=== PATIENT | male | born 1990 | race Caucasian/White ===

== ENCOUNTER 2016-09-26 18:45 | Emergency (ER) | payer BC ==
[2016-09-26] MEDS ORDERED: Ketorolac 60 MG/2 ML SDV IM ONE (19:01)
--- NOTE | 2016-09-26 19:08 | EDM.PDOC ---
ED HPI GENERAL MEDICAL PROBLEM - General Chief Complaint: Chest Pain Stated Complaint: CHEST PAIN Time Seen by Provider: 09/26/16 18:50 Source of Information: Reports: Patient History Limitations: Reports: No Limitations - History of Present Illness INITIAL COMMENTS - FREE TEXT/NARRATIVE: 26 yo male played in a softball tournament over the weekend and at one point while playing catcher had an opposing player run into him. He had no pain at that time, but since then has developed L upper anterior chest wall pain worse with deep breathing or coughing. No SOB. 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 - Related Data Allergies Allergy/AdvReac Type Severity Reaction Status Date / Time No Known Allergies Allergy Verified 11/15/12 23:08 Home Meds: Home Meds Ondansetron [Zofran ODT] 4 mg PO Q6H PRN #4 tab.dis 11/16/12 [Rx] Mirtazapine [Remeron] 30 mg PO BEDTIME 11/17/12 [History] Social & Family History - Tobacco Use Second Hand Smoke Exposure: Yes - Alcohol Use Days Per Week of Alcohol Use: 2 Number of Drinks Per Day: 5 Total Drinks Per Week: 10 - Recreational Drug Use Recreational Drug Use: No ED ROS GENERAL - Review of Systems Review Of Systems: See Below Constitutional: Reports: No Symptoms HEENT: Reports: No Symptoms Respiratory: Reports: Pleuritic Chest Pain. Denies: Shortness of Breath, Wheezing, Cough, Sputum, Hemoptysis Cardiovascular: Reports: Chest Pain (L upper chest) Endocrine: Reports: No Symptoms GI/Abdominal: Reports: No Symptoms : Reports: No Symptoms Musculoskeletal: Reports: No Symptoms Skin: Reports: No Symptoms Neurological: Reports: No Symptoms ED EXAM, GENERAL - Physical Exam Exam: See Below Exam Limited By: No Limitations General Appearance: Alert, WD/WN, No Apparent Distress Eye Exam: Bilateral Eye: Normal Inspection Ears: Normal External Exam, Normal Canal, Hearing Grossly Normal Ear Exam: Bilateral Ear: Auricle Normal, Canal Normal Nose: Normal Inspection, Normal Mucosa, No Blood Throat/Mouth: Normal Inspection, Normal Oropharynx, Normal Voice, No Airway Compromise Head: Atraumatic, Normocephalic Neck: Normal Inspection, Supple Respiratory/Chest: No Respiratory Distress, Lungs Clear, Normal Breath Sounds, No Accessory Muscle Use, Other (Localized rib pain without crepitus to the upper L chest. ). No: Chest Non-Tender Cardiovascular: Regular Rate, Rhythm, No Edema Back Exam: Normal Inspection. No: CVA Tenderness (R), CVA Tenderness (L) Extremities: Normal Inspection, Normal Range of Motion, Non-Tender, No Pedal Edema Neurological: Alert, Oriented, CN II-XII Intact, Normal Cognition, No Motor/ Sensory Deficits Psychiatric: Normal Affect, Normal Mood Skin Exam: Warm, Dry, Intact, Normal Color, No Rash Lymphatic: No Adenopathy Course - Orders/Labs/Meds Meds: Medications Discontinued Medications Generic Name Dose Route Start Last Admin Trade Name Freq PRN Reason Stop Dose Admin Ketorolac Tromethamine 60 mg 09/26/16 19:01 Toradol IM 09/26/16 19:02 ONETIME ONE Departure - Departure Time of Disposition: 19:20 Disposition: Home, Self-Care 01 Condition: Good Clinical Impression: Rib pain on left side Care Plan Goals: Take ibuprofen 600 mg every 6 hrs with food. For additional relief take acetaminophen 1000 mg every 6 hrs. Activity as tolerated. Recheck in the clinic as needed.
[2016-09-26 20:35] VITALS: BP 111/71
== END 2016-09-26 20:20 | disposition home or self-care (01) ==
LOC: FB.ED 18:45
DX: R07.81 Pleurodynia (principal)
CPT/HCPCS: 96372; 99284; J1885

== ENCOUNTER 2017-02-20 06:44 | Emergency (ER) | payer BC ==
[2017-02-20] MEDS ORDERED: Acetaminophen 500 MG Tab PO ONE (07:26)
[2017-02-20] MEDS ORDERED: Aluminum Hydroxide/Magnesium Hydroxide Susp 30 ML Cup PO STA (07:27)
--- NOTE | 2017-02-20 07:32 | EDM.PDOC ---
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 No melena or hematochezia. No hx of abdominal surgeries, but has had ulcers in he past. Doesn't believe he's been tested for H. pylori. No fever. Thinks he is dizzy with standing. Bowels normal. Sx's now for several days, has not been to the clinic. Onset: Gradual Onset Date: 02/16/17 Duration: Day(s):, Waxing/Waning Location: Reports: Abdomen Quality: Reports: Ache Severity: Moderate Improves with: Reports: None Worsens with: Reports: Other (? time) Context: Reports: Other (Hx of stomach ulcers) Associated Symptoms: Reports: Nausea/Vomiting. 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 Social & Family History - Family History Family Medical History: Noncontributory - Tobacco Use Smoking Status *Q: Former Smoker Years of Tobacco use: 1 Packs/Tins Daily: 0.1 Used Tobacco, but Quit: Yes Month Tobacco Last Used: 2 weeks Second Hand Smoke Exposure: Yes - Caffeine Use Caffeine Use: Reports: Coffee, Soda - Alcohol Use Days Per Week of Alcohol Use: 2 Number of Drinks Per Day: 5 Total Drinks Per Week: 10 - Recreational Drug Use Recreational Drug Use: No ED ROS GENERAL - Review of Systems Review Of Systems: See Below Constitutional: Reports: No Symptoms HEENT: Reports: No Symptoms Respiratory: Reports: No Symptoms Cardiovascular: Reports: No Symptoms Endocrine: Reports: No Symptoms GI/Abdominal: Reports: Abdominal Pain, Hematemesis, Nausea, Vomiting. Denies: Black Stool, Bloody Stool, Constipation, Diarrhea, Decreased Appetite, Distension, Flatus, Hematochezia, Melena : Reports: No Symptoms Musculoskeletal: Reports: No Symptoms Skin: Reports: No Symptoms Neurological: Reports: No Symptoms Psychiatric: Reports: No Symptoms ED EXAM, GI/ABD - Physical Exam Exam: See Below Exam Limited By: No Limitations General Appearance: Alert, WD/WN, No Apparent Distress Eyes: Bilateral: Normal Appearance Ears: Normal External Exam, Normal Canal, Hearing Grossly Normal, Normal TMs Nose: Normal Inspection, Normal Mucosa, No Blood Throat/Mouth: Normal Inspection, Normal Lips, Normal Oropharynx, Normal Voice, No Airway Compromise Head: Atraumatic, Normocephalic Neck: Normal Inspection, Supple, Non-Tender Respiratory/Chest: No Respiratory Distress, Lungs Clear, Normal Breath Sounds, No Accessory Muscle Use, Chest Non-Tender Cardiovascular: Normal Peripheral Pulses, Regular Rate, Rhythm, No Edema GI/Abdominal Exam: Normal Bowel Sounds, Soft, No Distention, Tender (mostly tender lower 1/2 of abdomen). No: Distended, Guarding, Rigid, Rebound, Hernia Back Exam: Normal Inspection. No: CVA Tenderness (R), CVA Tenderness (L) Extremities: Normal Inspection, Normal Range of Motion, Non-Tender, No Pedal Edema Neurological: Alert, Oriented, CN II-XII Intact, Normal Cognition, No Motor/ Sensory Deficits Psychiatric: Normal Affect, Normal Mood Skin Exam: Warm, Dry, Intact, Normal Color, No Rash Lymphatic: No Adenopathy Course - Vital Signs Text/Narrative:: Orthostats-positive LR 1000 ml IV, acetaminophen 1000 mg po, Maalox 30 ml po H. pylori stool Ag pending Last Recorded V/S: Last Vital Signs Temp 36.3 C 02/20/17 06:50 Pulse 77 02/20/17 06:50 Resp 18 02/20/17 06:50 BP 136/90 02/20/17 06:50 Pulse Ox 99 02/20/17 06:50 Orthostatic Blood Pressure [ 125/74 Standing] Orthostatic Blood Pressure [ 124/60 Sitting] Orthostatic Blood Pressure [ 143/82 Supine] - Orders/Labs/Meds Orders: Active Orders 24 hr Category Date Time Status Orthostatic Vital Signs [RC] ASDIRECTED Care 02/20/17 07:25 Active HELICOBACTER PYLORI AG, STOOL [REF] Stat Lab 02/20/17 07:26 Uncollected Lactated Ringers [Ringers, Lactated] 1,000 ml Med 02/20/17 08:13 Active IV BOLUS Medication Orders Lactated Ringer's (Ringers, Lactated) 1,000 mls @ 1,000 mls/hr IV BOLUS ONE Stop: 02/20/17 09:12 Labs: Laboratory Tests 02/20/17 02/20/17 Range/Units 07:34 07:34 WBC 9.5 (4.5-12.0) X10-3/uL RBC 5.06 (4.30-5.75) x10(6)uL Hgb 15.6 H (11.5-15.5) g/dL Hct 46.4 (30.0-51.3) % MCV 91.8 (80-96) fL MCH 30.9 (27.7-33.6) pg MCHC 33.6 (32.2-35.4) g/dL RDW 12.5 (11.5-15.5) % Plt Count 250 (125-369) X10(3)uL C-Reactive Protein < 0.2 L (0.5-0.9) mg/dL Meds: Medications Generic Name Dose Route Start Last Admin Trade Name Freq PRN Reason Stop Dose Admin Lactated Ringer's 1,000 mls @ 1,000 mls/hr 02/20/17 08:13 Ringers, Lactated IV 02/20/17 09:12 BOLUS ONE Discontinued Medications Generic Name Dose Route Start Last Admin Trade Name Freq PRN Reason Stop Dose Admin Acetaminophen 1,000 mg 02/20/17 07:26 02/20/17 07:35 Tylenol Extra Strength PO 02/20/17 07:27 1,000 mg ONETIME ONE Administration Al Hydroxide/Mg Hydroxide 30 ml 02/20/17 07:27 02/20/17 07:35 Mag-Al Susp PO 02/20/17 07:28 30 ml NOW STA Administration Departure - Departure Time of Disposition: 09:30 Disposition: Home, Self-Care 01 Condition: Fair Clinical Impression: Abdominal pain, Nausea, Orthostasis - Discharge Information Referrals: Soy Short MD [Primary Care Provider] - Forms: ED Department Discharge - My Orders Last 24 Hours: My Active Orders 02/20/17 07:25 Orthostatic Vital Signs [RC] ASDIRECTED 02/20/17 07:26 HELICOBACTER PYLORI AG, STOOL [REF] Stat 02/20/17 08:13 Lactated Ringers [Ringers, Lactated] 1,000 ml IV BOLUS - Assessment/Plan Last 24 Hours: My Active Orders 02/20/17 07:25 Orthostatic Vital Signs [RC] ASDIRECTED 02/20/17 07:26 HELICOBACTER PYLORI AG, STOOL [REF] Stat 02/20/17 08:13 Lactated Ringers [Ringers, Lactated] 1,000 ml IV BOLUS
[2017-02-20] MEDS ORDERED: Lactated Ringers 1,000 ML IV ONE (08:13)
[2017-02-20] MEDS ORDERED: Sodium Chloride 0.9% 10 ML Syringe FLUSH PRN (09:36)
[2017-02-20 09:41] VITALS: BP 124/70
== END 2017-02-20 09:30 | disposition home or self-care (01) ==
LOC: FB.ED 06:44
DX: R10.9 Unspecified abdominal pain (principal); R11.2 Nausea with vomiting, unspecified; I95.1 Orthostatic hypotension; Z87.891 Personal history of nicotine dependence
CPT/HCPCS: 36415; 82272; 85027; 86140; 87338; 96360; 99284; A9270; J7050; J7120